=== PATIENT | female | born 1965 | race Caucasian/White ===

== ENCOUNTER 2020-06-13 06:18 | Emergency (ER) | payer BC ==
[~2020-06-13] VITALS: Ht 167.6 cm; Wt 87.1 kg
[2020-06-13] MEDS ORDERED: OMEP20TA5 PO (06:26)
[2020-06-13] MEDS ORDERED: ONDANSETRON 4 MG/2 ML VIAL IV ONE (06:45)
[2020-06-13] MEDS ORDERED: ONDANSETRON 4 MG/2 ML VIAL ONE (06:45)
[2020-06-13] MEDS ORDERED: KETOROLAC TROMETHAMINE 30 MG INJ ONE ×2 (06:45→10:35)
[2020-06-13] MEDS ORDERED: KETOROLAC TROMETHAMINE 15 MG INJ IVP ONE (06:45)
[2020-06-13] MEDS ORDERED: IV NORMAL SALINE 1000 ML BAG IV ONE ×2 (06:45→10:15)
--- NOTE | 2020-06-13 07:05 | NUR ---
Report received from plant operator/shift supervisor RN (Randy) Pt is asleep but easily rousable. with fluids infusing to L AC G20 intact without s/s infiltration nor phlebitis. NAD VSS RA monitored accordingly Pending labs, pending urine sample, pending disposition.
--- NOTE | 2020-06-13 07:05 | NUR ---
Report to Mariah BYRD
--- NOTE | 2020-06-13 08:00 | NUR ---
Pt ambulatory with stable gait able towards bathroom. able to void and provide urine sample. Labs drawn by tech at this time. Pending CT uro once creatinine resulted. NAD VSS RA monitored accordingly
[2020-06-13 08:03] LABS: BASOPHILS # (AUTO) 0.1 K/uL (0.0-8.0); BASOPHILS % (AUTO) 0.4 % (0.0-2.0); EOSINOPHILS % (AUTO) 0.1 % (0.0-7.0); HEMATOCRIT 38.3 % (31.2-41.9); LYMPHOCYTES # (AUTO) 1.2 K/uL (20.0-40.0); MEAN CORPUSCULAR HEMOGLOBIN 30.1 uug (24.7-32.8); MEAN CORPUSCULAR HGB CONC 34 g/dL (32.3-35.6); MEAN CORPUSCULAR VOLUME 88.7 fL (75.5-95.3); MONOCYTES # (AUTO) 0.7 K/uL (2.0-10.0); MONOCYTES % (AUTO) 5.4 % (0.0-11.0); NEUTROPHILS # (AUTO) 11.7 K/uL (1.8-8.9); NEUTROPHILS % (AUTO) 85.1 % (38.5-71.5); PLATELET COUNT (AUTO) 195 K/uL (179-408); RED BLOOD CELL COUNT(AUTO) 4.32 MIL/uL (3.63-4.92); WHITE BLOOD COUNT (AUTO) 13.7 K/uL (3.8-11.8)
[2020-06-13 08:08] LABS: *BILIRUBIN,URIN NEGATIVE (NEGATIVE); *BLOOD, URINE 3+ (NEGATIVE); *CLARITY,URINE CLOUDY (CLEAR); *COLOR,URINE YELLOW (YELLOW); *KETONES,URINE NEGATIVE (NEGATIVE); *UROBILINOGEN,URINE 0.2 E.U./dl (NORMAL); LEUKOCYTE ESTERASE ,URINE 1+ (NEGATIVE); NITRITE, URINE NEGATIVE (NEGATIVE); UGLUCOSE NEGATIVE (NEGATIVE)
[2020-06-13 08:19] LABS: BILIRUBIN,TOTAL 0.5 mg/dL (0.2-1.0); CREATININE 0.9 mg/dL (0.6-1.3); POTASSIUM 3.8 mmol/L (3.5-5.1); TOTAL PROTEIN, SERUM 6.4 g/dL (6.4-8.2)
[2020-06-13] MEDS ORDERED: SWABABLE VALVE TRANSFER SET EA MC ONE (08:50)
[2020-06-13] MEDS ORDERED: IV NORMAL SALINE 250 ML IV ONE (08:50)
[2020-06-13] MEDS ORDERED: IOHEXOL 300MG/ML 100 ML INFUS..BTL ONE (08:50)
--- NOTE | 2020-06-13 09:33 | NUR ---
Back from CT via wheelchair. skin intact, with LACG20 saline lock intact. ambulatory with stable gait. NAD VSS RA
[2020-06-13] MEDS ORDERED: KETOROLAC TROMETHAMINE 30 MG INJ IVP ONE (10:15)
[2020-06-13] MEDS ORDERED: CEFTRIAXONE 1 G in IV DEXTROSE 5% 50 ML IV ONE (10:15)
[2020-06-13] MEDS ORDERED: CEFTRIAXONE /D5W 50ML IVPB **ER PYXIS IV ONE (10:35)
--- NOTE | 2020-06-13 11:34 | NUR ---
Patient discharged to home in stable condition. Written and verbal after care instructions given. Patient verbalizes understanding of instructions. Stressed follow up or return to ER for worsening s/s. IV removed, dressed. all belongings with patient
[2020-06-13 11:35] VITALS: BP 135/89
[2020-06-13 12:25] LABS: BACTERIA,URINE FEW /HPF (NONE SEEN); SQUAMOUS EPITHELIAL CELL,UR FEW /HPF (NONE SEEN); WBC,URINE 80-100 /HPF (0-3)
== END 2020-06-13 11:37 | disposition home or self-care (01) ==
LOC: ER 06:21
DX: N12 Tubulo-interstitial nephritis, not specified as acute or chronic (principal); N13.30 Unspecified hydronephrosis; K42.9 Umbilical hernia without obstruction or gangrene; K44.9 Diaphragmatic hernia without obstruction or gangrene; Z88.5 Allergy status to narcotic agent; K21.9 Gastro-esophageal reflux disease without esophagitis; Z87.442 Personal history of urinary calculi
CPT/HCPCS: 36415; 74176; 74178; 80053; 81001; 85025; 87086; 87186; 96361; 96365; 96375; 96376; 99285; J0696; J1885 ×2; J2405; Q9967; A4663; J7030; J7050